=== PATIENT | male | born 1990 | race Caucasian/White ===

== ENCOUNTER → 2022-12-25 | Outpatient (CLI) | payer BC ==
--- NOTE | 2022-12-27 19:05 | MR ---
EXAMINATION TYPE: MR ankle RT wo/w con DATE OF EXAM: 12/25/2022 COMPARISON: No radiographic correlation available HISTORY: 32-year-old male M76.71, Right ankle pain, swelling, clicking, and limited range of movement for a few years. Peroneal tendon tear injury, dislocating around fibula. Technique: Multiplanar, multisequence images of the right ankle were obtained before and after admini stration of 8 mL intravenous Gadavist gadolinium contrast. FINDINGS: There is a small 8 mm focus of susceptibility artifact along the skin/superficial soft tissues of the plantar surface of the midfoot. Correlate with radiographs to exclude any visible retained radiopaqu e foreign body. The tibiotalar joint is intact with a small effusion communicating with the tendon sheath of the flex or hallucis longus. There is mild diffuse thinning of tibiotalar articular cartilage and a focal oste ochondral injury along the mid medial talar dome measuring 6 mm wide and 5 mm AP. Focal irregularity of the subchondral bone and overlying articular cartilage here. Subtalar joint is aligned. No acute or healing fracture or bone marrow edema otherwise seen. Smooth delineation to the Achilles tendon. Origin of the plantar fascia is intact. Trace effusion wit hin the retrocalcaneal bursa. Preserved fatty signal within the sinus Tarsi. 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 Medial flexor tendons otherwise intact. Deltoid spring ligament complex is in tact. The lateral ligamentous complex is intact. Mild tenosynovial fluid seen along the peroneal tendons. N o abnormal subluxation or dislocation from behind the distal fibula. Slightly long muscle belly of th e peroneus brevis extending to just below the tip of the inferior malleolus. The anterior extensor tendons and syndesmosis are intact. No abnormal enhancing lesions are seen. IMPRESSION: 1. Small osteochondral injury measuring 6 x 5 mm along the mid medial talar dome. 2. No peroneal tendon subluxation. There is mild peroneal tenosynovitis and slightly low muscle belly of the peroneus brevis which may cause symptoms related to soft tissue crowding. 3. Incidental accessory muscle of the ankle: Flexor digitorum accessory longus along the medial aspec t. 4. 8mm focus of susceptibility artifact along the skin surface/superficial plantar soft tissues of th e midfoot. Query any retained metal fragment.
== END | disposition home or self-care (01) ==
LOC: RADMRIMAIN 17:39
PROVIDERS: ATTEND Podiatrist Foot & Ankle Surgery
DX: S96.811A Strain of other specified muscles and tendons at ankle and foot level, right foot, initial encounter (principal); M65.871 Other synovitis and tenosynovitis, right ankle and foot; M76.71 Peroneal tendinitis, right leg; X58.XXXA Exposure to other specified factors, initial encounter
CPT/HCPCS: 73723; A9585